=== PATIENT | female | born 1950 | race Caucasian/White ===

== ENCOUNTER 2018-01-05 22:20 | Emergency (ER) | payer OTHER, MEDICARE ==
--- NOTE | 2018-01-05 22:35 | PDOC ---
Attending Attestation - Resident Resident Name: Damian Christopher - ED Attending Attestation I have performed the following: I have examined & evaluated the patient, The case was reviewed & discussed with the resident, I agree w/resident's findings & plan
[2018-01-05 22:36] VITALS: BMI 30.7
--- NOTE | 2018-01-05 22:39 | PDOC ---
History of Present Illness - General Chief Complaint: Pain Stated Complaint: ABDOMINAL PAIN Time Seen by Provider: 01/05/18 22:34 - History of Present Illness Initial Comments: Mrs. Yung is a 67 yo F with a significant pmh of waldenstrom macroglobulinemia, osteoarthritis, HTN, eczema, roseaca, kidney stones, past history of ovarian cancer with 2 surgeries on her abdomen to have her ovaries and tubes removed in 1983 who presents to the ER after having severe abdominal pain and constipation for the past 5 days and not having been able to pass a bowel movement. Today while she was sitting on the toilet she states that "She had an explosion and alot of diarrhea came out" She felt much better after the "explosion." She still came to the ER bc she was nervous that she had an obstruction and felt extremely dehydrated. 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 She received intrathecal methotrexate at [facility]. She is also on many medications which can be causing her constipation. Allergies: See chart - many medical, food, and drug related allergies. Social Hx: Denies cigarette, alcohol, or illicit drug usage. Past History - Past Medical History Allergies/Adverse Reactions: Allergies Allergy/AdvReac Type Severity Reaction Status Date / Time cisplatin Allergy Severe RESPIRATORY Verified 01/05/18 22:36 ARREST erythromycin base Allergy Severe Rash Verified 01/05/18 22:36 naproxen sodium [From Aleve] Allergy Severe Difficulty Verified 01/05/18 22:36 Breathing Penicillins Allergy Intermediate Hives Verified 01/05/18 22:36 rituximab Allergy Intermediate TACHYCARDIA Verified 01/05/18 22:36 WHITE POTATOES Allergy Severe MOUTH Uncoded 01/05/18 22:36 SWELLING XYLOCAINE SPRAY Allergy Severe SNEEZING Uncoded 01/05/18 22:36 AND RUNNY NOSE BENAMUSTINE Allergy Intermediate TACHYCARDIA Uncoded 01/05/18 22:36 Home Medications: Ambulatory Orders Atenolol [Tenormin -] 25 mg PO DAILY 03/20/14 Levothyroxine [Synthroid -] 50 mcg PO Q2D 03/20/14 Levothyroxine [Synthroid -] 75 mcg PO Q2D 03/20/14 Acetaminophen [Tylenol] 650 mg PO DAILY PRN 02/04/15 Ascorbic Acid [Vitamin C] 250 mg PO BID 02/04/15 Cholecalciferol (Vitamin D3) [Vitamin D3] 1,000 unit PO DAILY 02/04/15 Ferex 150 mg PO BID 02/04/15 Fluticasone Prop 0.05% Nasal [Flonase -] 1 - 2 spray NS BID PRN 02/04/15 Folic Acid/Multivit-Min/Lutein [Multi-Vitamin Gummies] 2 each PO DAILY 02/04/15 Propylene Glycol/Peg 400 [Systane Liquid Gel Eye Drops] 15 ml OP DAILY PRN 02/04 Anemia: Yes Asthma: No Cancer: Yes (OVARIAN 1984) Cardiac Disorders: Yes (PALPITATIONS,TACHYCARDIA POST CHEMO. ALL CARDIAC W/U- NEGATIVE) CVA: No COPD: No CHF: No Dementia: No Diabetes: No GI Disorders: No Disorders: Yes (KIDNEY STONES IN PAST) HTN: Yes Hypercholesterolemia: No Liver Disease: No Seizures: No Thyroid Disease: Yes (HYPOTHYROIDISM) - Surgical History Abdominal Surgery: No Appendectomy: Yes Cardiac Surgery: No Cholecystectomy: No Lung Surgery: No Neurologic Surgery: No Orthopedic Surgery: (09/06/14 RIGHT THR) - Immunization History Immunization Up to Date: Yes (2011) - Suicide/Smoking/Psychosocial Hx Smoking History: Never smoked Have you smoked in the past 12 months: No Information on smoking cessation initiated: No Hx Alcohol Use: No Drug/Substance Use Hx: No Substance Use Type: Alcohol Hx Substance Use Treatment: No Review of Systems - Review of Systems Comments:: CONSTITUTIONAL: Present: loss of appetite Absent: fever, chills, diaphoresis, generalized weakness, malaise HEENT: Absent: rhinorrhea, nasal congestion, throat pain, throat swelling, difficulty swallowing, mouth swelling, ear pain, eye pain, visual Changes CARDIOVASCULAR: Absent: chest pain, syncope, palpitations, irregular heart rate, lightheadedness , peripheral edema RESPIRATORY: Absent: cough, shortness of breath, dyspnea with exertion, orthopnea, wheezing, stridor, hemoptysis GASTROINTESTINAL: Present: abdominal pain, abdominal distension, diarrhea, constipation Absent: melena, hematochezia, nausea, vomiting. GENITOURINARY: Absent: dysuria, frequency, urgency, hesitancy, hematuria, flank pain, genital pain MUSCULOSKELETAL: Absent: myalgia, arthralgia, joint swelling SKIN: Absent: rash, itching, pallor HEMATOLOGIC/IMMUNOLOGIC: Present: Easy bruising Absent: easy bleeding, lymphadenopathy, frequent infections ENDOCRINE: Absent: unexplained weight gain, unexplained weight loss, heat intolerance, cold intolerance NEUROLOGIC: Absent: headache, focal weakness or paresthesias, dizziness, unsteady gait, seizure, mental status changes, bladder or bowel incontinence PSYCHIATRIC: Absent: anxiety, depression, suicidal or homicidal ideation, hallucinations. *Physical Exam - Vital Signs Last Vital Signs Temp Pulse Resp BP Pulse Ox 98.5 F 105 H 18 117/64 100 01/05/18 22:25 01/05/18 22:25 01/05/18 22:25 01/05/18 22:25 01/05/18 22:25 - Physical Exam Comments: GENERAL: Awake and alert. No acute distress. HEENT: Dry mucous membranes Normocephalic, atraumatic. PERRLA, EOMI. Sclera are non-icteric. Oropharynx is clear. NECK: Supple. Full ROM. No JVD. No lymphadenopathy. CARDIOVASCULAR: Regular rate and rhythm. No murmurs, rubs, or gallops. Distal pulses are 2+ and symmetric. PULMONARY: No evidence of respiratory distress. Lungs clear to auscultation bilaterally. No wheezing, rales or rhonchi. ABDOMINAL: There are increased bowel sounds. Otherwise the abdomen is soft, non-tender, and non-distended. No rebound or guarding. No organomegaly. MUSCULOSKELETAL Normal range of motion at all joints. No bony deformities or tenderness. No CVA tenderness. EXTREMITIES: No cyanosis. No clubbing. No edema. No calf tenderness. SKIN: Warm and dry. Normal capillary refill. No rashes. No jaundice. NEUROLOGICAL: Alert, awake, appropriate. Cranial nerves 2-12 intact. Normal speech. PSYCHIATRIC: Cooperative. Good eye contact. Appropriate mood and affect. ED Treatment Course - LABORATORY CBC & Chemistry Diagram: 01/06/18 00:50 01/06/18 00:50 Medical Decision Making - Medical Decision Making Mrs. Yung is a 67 yo F with a significant pmh of waldenstrom macroglobulinemia, osteoarthritis, HTN, eczema, roseaca, kidney stones, past history of ovarian cancer with 2 surgeries on her abdomen to have her ovaries and tubes removed in 1983 who presents to the ER after having severe abdominal pain and constipation for the past 5 days and not having been able to pass a bowel movement. DD includes but not limited to: Obstruction - SBO vs LBO, metastasis, dehydration, gastroenteritis, constipation, medication related side effects. Plan: Cbc, Cmp, CTAP, IV hydration, NPO in ED, Re-assess. CTAP showed no obstruction. Patient feels much better after IV hydration and states she would like to go home. She does not look ill. Patient has great follow up with all of her docs. Will DC. *DC/Admit/Observation/Transfer Diagnosis at time of Disposition: Abdominal pain - Discharge Dispostion Disposition: HOME Condition at time of disposition: Stable Decision to Admit order: No - Referrals Referrals: Dar Flores [Primary Care Provider] - - Patient Instructions Printed Discharge Instructions: Acute Abdominal Pain, DI for Mechanical Bowel Obstruction Additional Instructions: You came into the ER with abdominal pain and dehydration. We did a cat scan which showed you do not have a bowel obstruction. We gave you IV hydration which made you feel significantly better. Please make sure to follow up with your primary care doctor in the next 3 to 5 days to make sure you are getting better and feeling better. Please come back to the emergency room if your abdominal pain comes back, you can't make a bowel movement or have any other new or worsening concerns. Thank you for coming to the [facility] ER. We hope you feel better soon! Print Language: DANISH - Post Discharge Activity
[2018-01-05] MEDS ORDERED: SODIUM CHLORIDE 0.9% 500 ML INFUS.BAG IV ONE (23:16)
--- NOTE | 2018-01-05 23:17 | PDOC ---
Attending Attestation - HPI HPI: 01/05/18 23:38 The patient is a 67 year old female, with a significant past medical history of waldenstrom macroglobulinemia, valvular leaks, OA, HTN, Eczema rosacea, kidney stones, Ovarian CA s/p 2 surgeries, hypothyroidism, thyroid nodules, who presents to the emergency department with abdominal pain and constipation for 5 days which was alleviated after a sudden explosion of diarrhea this evening at a friends house. The patient denies chest pain, shortness of breath, headache and dizziness. The patient denies fever, chills, nausea, vomit. The patient denies dysuria, frequency, urgency and hematuria. Past surgical history: oophorectomy, right THR, appendectomy Social history: denies toxic habits PCP - Dr. Dar Flores - Medical Decision Making 01/05/18 23:38 Documentation prepared by Steph Verdin, acting as biomedical equipment support specialist for Arelis Geiger MD <Steph Verdin - Last Filed: 01/05/18 23:40> - Resident Resident Name: Damian Christopher - ED Attending Attestation I have performed the following: I have examined & evaluated the patient, The case was reviewed & discussed with the resident, I agree w/resident's findings & plan, Exceptions are as noted - Physicial Exam PE: GENERAL: Awake, alert, and fully oriented, in no acute distress HEAD: No signs of trauma EYES: PERRLA, EOMI, sclera anicteric, conjunctiva clear ENT: Auricles normal inspection, hearing grossly normal, nares patent, oropharynx clear without exudates. Dry mucosa NECK: Normal ROM, supple, no lymphadenopathy, JVD, or masses LUNGS: Breath sounds equal, clear to auscultation bilaterally. No wheezes, and no crackles HEART: Regular rate and rhythm, normal S1 and S2, no murmurs, rubs or gallops ABDOMEN: Soft, nontender, hyperactive bowel sounds. No guarding, no rebound. + Well healed midline abd scar. EXTREMITIES: Normal range of motion, no edema. No clubbing or cyanosis. No cords, erythema, or tenderness NEUROLOGICAL: Cranial nerves II through XII grossly intact. Normal speech, normal gait. Motor and sensation intact. SKIN: Warm, Dry, normal turgor, no rashes or lesions noted. - Medical Decision Making Pt with complicated abdominal history presents with constipation followed by explosive bowel movement. She was extremely pale afterwards as per friend at bedside. Questionable bowel obstruction, may have resolved. Based on history will obtain CT a/p. IV fluids for dehydration. <Arelis Geiger - Last Filed: 01/05/18 23:54>
[2018-01-06 01:05] LABS: HEMATOCRIT 27.9 % (32.4-45.2); HEMOGLOBIN 9.3 GM/dL (10.7-15.3); MCH 31.6 pg (25.7-33.7); MCHC 33.2 g/dl (32.0-36.0); MEAN CELL VOLUME 95.1 fl (80-96); MEAN PLT VOLUME 8.3 fl (7.5-11.1); PLATELET COUNT 202 K/MM3 (134-434); RBC 2.93 M/mm3 (3.60-5.2); RDW 14.1 % (11.6-15.6); WHITE BLOOD COUNT 12.2 K/mm3 (4.0-10.0)
[2018-01-06 01:36] LABS: ALBUMIN 2.5 g/dl (3.4-5.0); ALK PHOS 133 U/L (45-117); ANION GAP 10 MMOL/L (8-16); BILIRUBIN,TOTAL 1.1 mg/dL (0.2-1); BLOOD UREA NITROGEN 17 mg/dL (7-18); CALCIUM 7.9 mg/dL (8.5-10.1); CHLORIDE 103 mmol/L (98-107); CO2 24 mmol/L (21-32); CREATININE 0.9 mg/dL (0.55-1.3); GLUCOSE,RANDOM 123 mg/dL (74-106); POTASSIUM 3.6 mmol/L (3.5-5.1); SGOT/AST 32 U/L (15-37); SGPT/ALT 37 U/L (13-61); SODIUM 137 mmol/L (136-145); TOT PROT 6.3 g/dl (6.4-8.2)
[2018-01-06 02:38] VITALS: BP 117/66; PULSE 78; TEMP 98.1
== END 2018-01-06 02:38 | disposition home or self-care (01) ==
LOC: JER 22:20
DX: R10.84 Generalized abdominal pain (principal); I10 Essential (primary) hypertension; E03.9 Hypothyroidism, unspecified; M19.90 Unspecified osteoarthritis, unspecified site; Z87.442 Personal history of urinary calculi; Z85.79 Personal history of other malignant neoplasms of lymphoid, hematopoietic and related tissues; Z85.43 Personal history of malignant neoplasm of ovary; Z90.722 Acquired absence of ovaries, bilateral; Z88.0 Allergy status to penicillin; Z88.8 Allergy status to other drugs, medicaments and biological substances
CPT/HCPCS: 36415; 74176-TC; 80053; 85025; 99283-25

== ENCOUNTER 2019-10-06 06:31 | Day surgery (SDC) | payer OTHER, MEDICARE ==
[2019-09-29 16:51] VITALS: BMI 30.4
[2019-10-06] MEDS ORDERED: MIDAZOLAM HCL 2 MG/2 ML SINGLE DOSE VIAL ONE (07:01)
[2019-10-06] MEDS ORDERED: PROPOFOL 20 ML ONE (07:01)
[2019-10-06] MEDS ORDERED: LIDOCAINE HCL/PF 2% SDV 5ML VIAL ONE (07:01)
[2019-10-06] MEDS ORDERED: BUPIVACAINE HCL/PF 0.5% (5MG/ML) 10 ML VIAL ONE (07:15)
[2019-10-06] MEDS ORDERED: ERYTHROMYCIN 0.5% OPHTHALMIC OINTMENT 3.5 GM TUBE ONE (07:15)
[2019-10-06] MEDS ORDERED: TETRACAINE 0.5% OPHTH SOLN 2 ML BOTTLE ONE (07:15)
[2019-10-06] MEDS ORDERED: POVIDONE-IODINE 5% OPHTHALMIC PREP 30 ML SOLUTION ONE (07:15)
[2019-10-06] MEDS ORDERED: LIDOCAINE 1%/EPI 1:100000 (20 ML MULTI DOSE VIAL) ONE (07:16)
[2019-10-06] MEDS ORDERED: BACITRACIN 3.5 GM OPTHALMIC OINT TUBE ONE (08:08)
[2019-10-06] MEDS ORDERED: ceFAZolin SODIUM 1 GM VIAL ONE (08:17)
[2019-10-06] MEDS ORDERED: ONDANSETRON 4 MG/2 ML VIAL ONE ×2 (08:25→10:17)
[2019-10-06] MEDS ORDERED: DEXAMETHASONE SOD PHOSPHATE 4 MG/1 ML VIAL ONE (08:25)
[2019-10-06] MEDS ORDERED: OXYMETAZOLINE 0.05% NASAL SOLUTION 15 ML BOTTLE NS ONE (08:28)
[2019-10-06] MEDS ORDERED: GUM MASTIC/STORAX/MSAL/ALCOHOL 1 DRP DROPSBTL MC ONE (10:03)
[2019-10-06] MEDS ORDERED: oxyCODONE HCL 5 MG TABLET PO PRN (10:49)
[2019-10-06] MEDS ORDERED: LACTATED RINGERS SOLUTION 1,000 ML IV SCH (11:00)
[2019-10-06 12:21] VITALS: TEMP 99
[2019-10-06 12:29] VITALS: PULSE 89
[2019-10-06 13:10] VITALS: BP 142/88
--- NOTE | 2019-10-07 07:59 | OP ---
DATE OF OPERATION: 10/06/2019 PREOPERATIVE DIAGNOSIS: Extensive defect right lower lid involving significant portion of the canaliculus and lower lid full thickness after excision of carcinoma. POSTOPERATIVE DIAGNOSIS: Extensive defect right lower lid involving significant portion of the canaliculus and lower lid full thickness after excision of carcinoma. PROCEDURE: 1. Examination under anesthesia. 2. Lateral canthal rotation flap, skin muscle flap, from right lateral canthus to right lower lid. 3. Tarsoconjunctival graft from the right upper lid to the right lower lid. 4. Canaliculoplasty with silicon intubation of the right lacrimal system. 5. Conjunctivoplasty right inferior fornix. 6. Full thickness skin graft from the left preauricular region to the right lower lid. SURGEON: Twan Ríos MD ANESTHESIA: LMA. COMPLICATIONS: None. ESTIMATED BLOOD LOSS: 5-10 mL. OPERATIVE REPORT: Patient brought to the operating room, placed on the operating room table. Vital signs monitored by Anesthesia. Tetracaine was placed in both eyes. Patient was given LMA anesthesia. The wound was photographed, and the patient was injected with 2% Xylocaine, 1:100,000 epinephrine, 0.5% Marcaine in a 2:1 mixture around the entire lower lid and the right upper lid was everted and injected subconjunctivally in preparation for flap there. A superior semi-circular flap was marked at the lateral canthus and this was injected as well for a total of 5 to 10 mL. The patient was prepped and draped in a standard fashion exposing both ears and both eyes. The left eye was manually closed. The wound was examined, and the medial end of the canaliculus approximately 2 mm was identified, and therefore the nose was packed with cottonoids moistened with Afrin and lateral canthal rotation flap was created by incising from the lateral canthus in a superior arc fashion. A skin muscle flap was developed and widely undermined. The inferior rhoda of the lateral canthal tendon was released after the muscle was dissected off the superior rhoda, and this allowed rotation of the lateral remnant nasally. However, it was not sufficient to close the eyelid completely, and therefore a tarsoconjunctival flap from the upper lid had to be harvested. The lid was everted, the defect was measured with the lid on stretch at 10 mm the tarsoconjunctival graft was marked, leaving 4 mm intact tarsus in the upper lid. It was incised with a 11 blade through the tarsotomy and then Maryanne scissors were used to dissect the Perkins muscle off of the conjunctiva, creating a nice tarsoconjunctival flap, and this flap was then sutured to the lateral remnant by incising the lateral remnant into an anterior and posterior lamella ensuring that no posterolateral and suturing this with 6-0 and 7-0 Vicryl sutures from the tarsus to the tarsus. The lower canaliculus was identified, as was the upper, and the upper punctum was dilated. Packing was removed from the nose, and Madsen probes were used to intubate the system through the lower and the upper canaliculus and these were retrieved under the inferior turbinate with a Madsen hook, intubating the remnant of the lower canaliculus and intubating the entire system. A pigtail probe was then attempted but was unable to pass without trauma. Therefore since there was no lower punctum, a silicone intubation was performed with Madsen tubes. These were tied and then secured to the right external naris with a single 5-0 Prolene suture. The tarsoconjunctival graft was now reexamined, and the conjunctiva was dissected off with retractors from the lower lid and the conjunctivoplasty fashioned, as some of the conjunctiva had been removed, and this allowed for a conjunctival flap which was then sutured to the inferior tarsoconjunctival graft with a running 6-0 chromic suture. The lateral canthal angle was reformed by measuring the contralateral horizontal palpebral fissure at 32 mm, and then 32 mm was measured on the right. This reformed the lateral canthus at 32 mm using a buried 5-0 chromic through the rivero line of the upper lid. The advanced skin muscle flap was elevated. Lateral to this, the skin muscle flap was closed with 5-0 Vicryl and the skin with running and interrupted 6-0 and 5-0 plain suture with plastic technique. The tarsus on the medial end of the tarsoconjunctival flap was now sutured to the medial canthal tendon, tarsal tendon and structures anterior to the preserved canalicular remnant with multiple 6-0 Vicryl sutures, reattaching the posterior lamella completely. At this point, the template was placed over the defect in the anterior lamella as there was not enough skin muscle to advance superiorly, and this was placed in the preauricular area in the left ear. The pretragal incision as well as the oval was marked, and then this was injected with 2% Xylocaine, 1:100,000 epinephrine and this for hemostasis, approximately 3 to 4 mL. The graft was harvested with a 15 blade and then dissected with a Maryanne scissors in the dermal plane. It was thinned of all subcutaneous tissue and pie crusted with a number 11 blade. The donor site was closed with 3 interrupted 5-0 Vicryl and then with running 5-0 plain suture with plastic technique, removing standing cutaneous deformities. The graft was then sutured into the host site on the right lower lid using a running 6-0 chromic suture for the superior edge and interrupted and running 6-0 plain suture around the nasal, temporal and inferior edge of the graft, everting the graft host junction wherever necessary. This completed reconstruction, canaliculoplasty with silicone intubation right lacrimal system, tarsoconjunctival graft, lateral rotation flap, full thickness skin grafting conjunctivoplasty. Bacitracin ointment was placed over the sutures on the left ear, right lateral canthus, and the skin graft. Strip Telfa and a dental roll were tied over the skin graft. There had been a 4-0 silk suture passed through the margin of the upper lid for retraction during the case. This was used to tie to a 4-0 silk suture placed below the dental roll and passed through the dental roll. These 2 were tied together creating stability for the dental roll, and then bacitracin ointment was placed on the eye and all sutures were placed over the dental roll. Strip Telfa and eye patch and gentle fluff were placed over the closed eye and secured there with Mastisol and paper tape, and the patient was taken to the recovery room after awakening from anesthesia. TWAN RÍOS M.D. [id number]
== END 2019-10-06 13:00 | disposition home or self-care (01) ==
LOC: FASU 06:31
PROVIDERS: ATTEND Ophthalmology
PROC: 08RQX7Z Replacement of Right Lower Eyelid with Autologous Tissue Substitute, External Approach (ICD-10-PCS; principal; 2019-10-06 08:27)
DX: H02.89 Other specified disorders of eyelid (principal); C44.1022 Unspecified malignant neoplasm of skin of right lower eyelid, including canthus
CPT/HCPCS: 94760

== ENCOUNTER 2019-10-27 08:54 | Day surgery (SDC) | payer OTHER, MEDICARE ==
[2019-10-23 16:38] VITALS: BMI 31.1
[2019-10-27] MEDS ORDERED: BACITRACIN 3.5 GM OPTHALMIC OINT TUBE ONE (11:32)
[2019-10-27] MEDS ORDERED: BUPIVACAINE HCL/PF 0.5% (5MG/ML) 10 ML VIAL ONE (11:33)
[2019-10-27] MEDS ORDERED: LIDOCAINE 1%/EPI 1:100000 (20 ML MULTI DOSE VIAL) ONE (11:33)
[2019-10-27] MEDS ORDERED: MIDAZOLAM HCL 2 MG/2 ML SINGLE DOSE VIAL ONE (11:55)
[2019-10-27] MEDS ORDERED: PROPOFOL 20 ML ONE (11:59)
[2019-10-27] MEDS ORDERED: ceFAZolin SODIUM 1 GM VIAL ONE (12:09)
[2019-10-27] MEDS ORDERED: ONDANSETRON 4 MG/2 ML VIAL ONE (12:27)
[2019-10-27] MEDS ORDERED: oxyCODONE HCL 5 MG TABLET PO PRN (12:39)
[2019-10-27] MEDS ORDERED: ONDANSETRON 4 MG/2 ML VIAL IVPUSH PRN (12:39)
[2019-10-27] MEDS ORDERED: LACTATED RINGERS SOLUTION 1,000 ML IV SCH (12:45)
[2019-10-27 13:00] VITALS: TEMP 98.6
--- NOTE | 2019-10-27 14:23 | OP ---
DATE OF OPERATION: 10/27/2019 PREOPERATIVE DIAGNOSIS: Ankyloblepharon, right. POSTOPERATIVE DIAGNOSIS: Ankyloblepharon, right. PROCEDURE: 1. Excision of ankyloblepharon, right upper lid. 2. Reconstruction of right lower lid margin. SURGEON: Twan Levin MD ANESTHESIA: Local with sedation. COMPLICATIONS: None. ESTIMATED BLOOD LOSS: 2 to 3 mL. OPERATIVE REPORT: The patient was brought to the operating room, placed in the operating room table, vital signs monitored by anesthesia. Tetracaine was placed in both eyes. Timeout was performed. Proposed new margin of the right lower lid was marked with a sterile marking pen, and then a 50/50 mixture of 2% Xylocaine and 1:100,000 epinephrine and 0.5% Marcaine was injected subcutaneously in the central right upper lid and in the body of the ankyloblepharon on the right side for 1 to 2 mL. The patient was prepped and draped in usual sterile fashion. A 4-0 silk traction suture was passed through the margin of the right upper lid, clamped in a hemostat, everting that lid. The new margin was identified and then a Maryanne scissors beveling it more superiorly toward the conjunctiva and the skin was used to excise the ankyloblepharon from the lower lid, recreating a new marginal contour. The silicone stent which had been placed previously in the salvaged right lower tear duct was moved medially and protected during the excision of this ankyloblepharon. The right upper lid was everted over a Desmarres retractor and the ankyloblepharon was excised and cut flush to the posterior lamella. Any bleeding was cauterized with minimal cautery. The right lower lid margin was then reconstructed by trimming the skin as needed to give a smooth contour, and trimming the middle lamella and conjunctiva. The conjunctiva was not oversewn as it was in good position without oversewing, and smooth contour of the lower lid was identified, expecting a small amount of contracture with time, and the silicone stent was protected within the lacrimal system. Erythromycin ointment was placed in the eye and the patient was taken to the recovery room in stable condition. TWAN LEVIN M.D. [id number]
[2019-10-27 15:25] VITALS: BP 148/74; PULSE 80
--- NOTE | 2019-10-29 17:36 | PATH ---
Surgical Pathology Report Patient Name: MARIO MARIA Med. Rec. #: [id number] /Age/Gender: 1950 (Age: 69) / F Account: [id number] Location: [facility] AMBULATORY Taken: 10/27/2019 Received: 10/27/2019 Reported: 10/29/2019 Physicians: Babak Ríos Specimen(s) Received RIGHT EYE ANKYLOBLEPHARON Clinical History Basal cell carcinoma right eye Final Diagnosis RIGHT EYE ANKYLOBLEPHARON, EXCISION: PORTION OF SQUAMOUS AND CONJUNCTIVA MUCOSA WITH ACUTE AND CHRONIC INFLAMMATION, FOCAL FOREIGN BODY TYPE GIANT CELL REACTION, AND SOLAR ELASTOSIS IN THE DERMIS. Note: Multiple levels serial H&E stained sections have been reviewed. Electronically Signed Gisselle Banks M.D. Gross Description Received in formalin labeled "right eye ankyloblepharon," is a 1.4 x 0.5 x 0.2 cm dillon, irregular, unoriented portion of soft tissue. The specimen is inked blue and serially sectioned. Specimen is entirely submitted in 3 cassettes. /10/28/2019 [facility]/10/28/2019
== END 2019-10-27 14:45 | disposition home or self-care (01) ==
LOC: FASU 08:54
PROVIDERS: ATTEND Ophthalmology
PROC: 08BQ0ZZ Excision of Right Lower Eyelid, Open Approach (ICD-10-PCS; principal; 2019-10-27 12:12)
DX: H02.521 Blepharophimosis right upper eyelid (principal); H02.5 Other disorders affecting eyelid function
CPT/HCPCS: 88304-TC; 94760

== ENCOUNTER 2022-08-30 07:26 | Day surgery (SDC) | payer OTHER, MEDICARE ==
[2022-08-28 08:54] VITALS: BMI 33.4
[2022-08-30] MEDS ORDERED: PROPOFOL 40 ML ONE (08:02)
[2022-08-30 16:29] VITALS: RESP 17; TEMP 97
[2022-08-30 16:37] VITALS: BP 121/63; PULSE 88
== END 2022-08-30 10:00 | disposition home or self-care (01) ==
LOC: FASU-ENDO 07:26
PROVIDERS: ATTEND Internal Medicine Gastroenterology
PROC: 0DBL8ZX Excision of Transverse Colon, Via Natural or Artificial Opening Endoscopic, Diagnostic (ICD-10-PCS; 2022-08-30)
PROC: 0DBM8ZX Excision of Descending Colon, Via Natural or Artificial Opening Endoscopic, Diagnostic (ICD-10-PCS; principal; 2022-08-30 08:22)
DX: Z12.11 Encounter for screening for malignant neoplasm of colon (principal); D12.2 Benign neoplasm of ascending colon; D12.4 Benign neoplasm of descending colon; Z80.0 Family history of malignant neoplasm of digestive organs
CPT/HCPCS: 88305-TC